=== PATIENT | female | born 1950 | race Caucasian/White ===

== ENCOUNTER 2020-11-20 13:05 | Day surgery (SDC) | payer MEDICARE, MEDICAID ==
[~2020-11-20] VITALS: Ht 157.5 cm; Wt 64.3 kg
[2020-11-20] MEDS ORDERED: ACET650S21 PO (14:05)
[2020-11-20 14:08] VITALS: BP 188/81
[2020-11-20] MEDS ORDERED: CHLORHEXIDINE 15 ML UDC PO ONE (14:30)
[2020-11-20] MEDS ORDERED: LACTATED RINGERS 1,000 ML IV SCH (14:30)
[2020-11-20] MEDS ORDERED: PROMETHAZINE 25 MG/ML, 1ML IVPush PRN (15:30)
[2020-11-20] MEDS ORDERED: MEPERIDINE/PF 25MG/0.5ML IVPush PRN (15:30)
[2020-11-20] MEDS ORDERED: MIDAZOLAM 1 MG/ML, 2ML IV PRN (15:30)
[2020-11-20] MEDS ORDERED: LABETALOL 5MG/ML, 20ML IV PRN (15:30)
[2020-11-20] MEDS ORDERED: ACETAMINOPHEN 325 MG TABLET PO PRN (15:30)
[2020-11-20] MEDS ORDERED: FENTANYL PF 100 MCG/2ML IV PRN (15:30)
[2020-11-20] MEDS ORDERED: OXYcodone 5 MG/5 ML ORAL.SOL UDC PO PRN (15:30)
[2020-11-20] MEDS ORDERED: HYDROmorphone 1 MG/ML, 1ML INJ IVPush PRN (15:30)
[2020-11-20] MEDS ORDERED: FENTANYL PF 100 MCG/2ML ONE (15:59)
[2020-11-20] MEDS ORDERED: MIDAZOLAM 1 MG/ML, 2ML ONE (15:59)
[2020-11-20] MEDS ORDERED: BUPIVACAINE/PF 0.5% ONE (17:36)
[2020-11-20] MEDS ORDERED: CEFAZOLIN 1,000 MG ONE (17:36)
[2020-11-20] MEDS ORDERED: DEXAMETHASONE 4 MG/ML, 1ML ONE (17:36)
[2020-11-20] MEDS ORDERED: PROPOFOL 10 MG/ML, 20ML ONE (17:36)
[2020-11-20] MEDS ORDERED: LIDOCAINE-MPF 2% ,5ML ONE (17:36)
[2020-11-20] MEDS ORDERED: ONDANSETRON 2MG/ML, 2ML ONE (17:36)
[2020-11-20 20:05] VITALS: BP 160/80
== END 2020-11-20 21:30 | disposition home or self-care (01) ==
LOC: OR 13:05 → 4NE 19:58 → OR 21:30
PROVIDERS: ATTEND Orthopaedic Surgery
DX: S52.592A Other fractures of lower end of left radius, initial encounter for closed fracture (principal); I10 Essential (primary) hypertension; Z88.8 Allergy status to other drugs, medicaments and biological substances; W01.0XXA Fall on same level from slipping, tripping and stumbling without subsequent striking against object, initial encounter; Y93.89 Activity, other specified; Y92.89 Other specified places as the place of occurrence of the external cause; Y99.8 Other external cause status; Z79.899 Other long term (current) drug therapy; Z98.890 Other specified postprocedural states; Z87.891 Personal history of nicotine dependence; Z20.822 Contact with and (suspected) exposure to COVID-19
CPT/HCPCS: 25607; 73100; 87635; 93005; C1713; C1776; J0690; J1100; J2250; J2405; J2704; J3010; J7120; 76000; G0378